=== PATIENT | female | born 1950 | race African-American/Black ===

== ENCOUNTER 2024-02-29 10:17 | Emergency (ER) | payer MEDICARE, SELFPAY ==
[2024-02-29 10:24] VITALS: BP 125/97; BMI 26.2
--- NOTE | 2024-02-29 10:27 | ED.GENMED ---
History of Present Illness
General
Chief Complaint: Abdominal Pain
Source: patient
Time Seen by Provider: 02/29/24 10:18
Travel History
Have you had any contact with someone who has COVID-19?: No
Do you have any symptoms of coronavirus? Fever > 100 degrees, chills, cough, shortness of breath, sore throat, loss of taste or smell, muscle aches, or headache?: No
History of Present Illness
History of Present Illness:
73-year-old female with past medical history of hypertension, GERD, diverticulitis/diverticulosis presenting to the emergency department for evaluation of generalized abdominal discomfort that started on Saturday, has been gradually worsening
throughout the days and yesterday and today accompanied with nausea and vomiting. Patient states that she attempted Pepto-Bismol yesterday with minimal to no relief. She states anytime she attempts to eat or drink anything pain will worsen and
then she will either vomit or have to feel like she has a bowel movement but states is not going very much. She denies any fevers, chills, rigors, urinary symptoms, chest pain, shortness of breath, melena or hematochezia or any other concerns.
Patient states she had a colonoscopy done in October or November of this year which showed diverticulosis but no other abnormal findings. Social history noncontributory. Of note, patient was recently on an antibiotic about 2 weeks ago prescribed
by her farm machine operator after she had a right eyelid infection. She denies any diarrhea.
Past History
Past History
ED Past Medical History: HTN and Other (Diverticulosis, diverticulitis)
ED Past Surgical History: Cholecystectomy, Gynecological and Orthopedic
Social History
Tobacco: Non-smoker
Alcohol: None
Drug: None
Personal:
Living: with family
Review of Systems
Review of Systems
All Other Systems: ROS reviewed and negative except as documented in HPI and ROS
Phy Exam
Physical Exam
Physical Exam:
GENERAL: Alert , in no apparent distress
EYE: clear conjunctiva b/l
HEAD: NCAT
ENT: o/p clr, mmm.
CARDIAC: Regular rate and rhythm .
LUNGS: Clear breath sounds bilaterally, no acute respiratory distress, no wheezes/rales/rhonchi
ABDOMEN: Soft, generalized tenderness, no r/g, no cvat
NEUROLOGICAL: Alert and oriented
SKIN: Warm and dry, skin intact.
MUSCULOSKELETAL: well perfused.
PSYCH: Normal and appropriate interaction.
Scores
Heart Failure Risk
Heart Failure Risk Score: Not Applicable
Heart Score for Chest Pain Patients
STEMI patient?: Not applicable
Withdrawal Assessment of Alcohol
Withdrawal Assessment Completed?: Not applicable
Course
Orders/Labs/Results
Orders:
Orders
02/29/24 10:26
Urinalysis Reflex To Culture Urgent
Ketorolac [Toradol] 30 mg IV NOW STA
Ondansetron Injectable [Zofran] 4 mg IV NOW STA
02/29/24 10:27
CT Abd/Pel (IV only)-DH only Urgent
Comment:
Reason For Exam: generalized abd pain, vomiting, hx diverticulitis
02/29/24 10:33
Complete Blood Count/With Diff Urgent
Comprehensive Metabolic Panel Urgent
Lipase Urgent
02/29/24 11:05
Potassium Chloride [KCl] 40 meq PO NOW STA
02/29/24 11:15
Case Management Consult ONCE
Case Management Consult: VN/Home Care
02/29/24 11:58
0.9% Sodium Chloride 1000 ml [Nss] 1,000 ml IV BOLUS
02/29/24 12:26
Crisis Consult Urgent
Reason for Consult: depression
Abnormal Lab Results
02/29/24
10:33
MCV 80.3 L fL
(81.0-99.0)
MCH 26.8 L pg
(27.0-31.0)
RDW 14.6 H %
(11.5-14.5)
Monocytes % 9.9 H %
(1.7-9.3)
Potassium 2.9 L mmol/L
(3.5-5.1)
Glucose 174 H mg/dl
(70-99)
02/29/24 10:33
02/29/24 10:33
Vital Signs
Initial and Last Documented VS:
Initial Vital Signs
Temp Pulse Resp BP Pulse Ox
98.0 F 94 18 125/97 98
02/29/24 10:24 02/29/24 10:24 02/29/24 10:24 02/29/24 10:24 02/29/24 10:24
Last Documented Vital Signs
Temp Pulse Resp BP Pulse Ox
98.0 F 94 18 141/91 97
02/29/24 10:24 02/29/24 10:24 02/29/24 10:24 02/29/24 11:00 02/29/24 11:15
MDM/Problems Addressed
Differential Diagnosis Includes:
Diverticulitis, diverticulosis, GERD, colitis, pancreatitis
MDM/Problems Addressed:
73-year-old female presenting to the emergency department for evaluation of generalized abdominal discomfort for 3 days, symptoms worsening yesterday and today and accompanied with nausea and vomiting. Overall patient's exam is somewhat reassuring.
She does not seem in any significant distress. She does have generalized abdominal discomfort. Will check labs and CT imaging. Treatment with Toradol and Zofran. Reassessment following
Chronic conditions affecting care: Other (diverticulosis)
*Pulse Oximetry
Patient hypoxic: no
*Critical Care Note
Total Time (30-74mins, 75-104mins- exclusive of procedures): Not Applicable
Patient Management
Discussion with other providers: Other
Escalation/DeEscalation of care consider admission/obs:
Patient seen by our case management staff who request patient all to be seen by crisis. Case management will arrange for home visits as well as protective services to come out and visit the patient. Patient has been living with her family for 15
years and her family recently moved from this area to [place] and for a long time patient was told she would need to find a living situation but has been pressed and eating and is now looking at potentially becoming homeless. Family believes that a
lot of these issues may stem from generalized depression and lack of self-care. She was also seen by our crisis team who provided her with resources for outpatient management. Patient is otherwise stable discharge home with her family. Her CT did
show evidence for mild diverticulitis. She was given a p.o. potassium supplement and will follow-up with her primary care physician.
ED Attending Note
-
Portions of this chart may have been created with voice recognition software.� Occasional wrong word or��sound alike� substitutions may have occurred due to the inherent limitations of voice recognition software.
Discharge Plan
Departure
Patient Disposition: Home (Routine Discharge)
Date of Disposition: 02/29/24
Time of Disposition: 13:40
Patient with high blood pressure during this ER visit?: Yes
Discharge Problem:
Diverticulitis
Instructions: Diverticulitis (DC)
Prescriptions:
New
amoxicillin-pot clavulanate 875-125 mg tablet
1 tab PO BID 10 Days Qty: 20 0RF
Referrals:
Duke Roper MD [Active] - (GI)
UNKNOWN - PT DOES,NOT KNOW [Family Provider] -
Interventions
Interventions:
*Risk Screen - Suicide Last Done: 02/29/24 10:24
*General Assessment Last Done: 02/29/24 10:24
*Neglect/Abuse Screening Last Done: 02/29/24 10:24
*ED COVID-19 Vaccine History Last Done: 02/29/24 10:24
Discharge Date and Time
Print Language: HUNGARIAN
[2024-02-29] MEDS: TORADOL 30 MG IV (10:36)
[2024-02-29] MEDS: ZOFRAN 4 MG IV (10:37)
[2024-02-29 10:44] LABS: % Basophils 0.8 % (0-2); % Eosinophils 2.4 % (0-6); % Immature Granulocytes 0.2 % (0-0.5); % Lymphocytes 37.5 % (20.5-51.1); % Monocytes 9.9 % (1.7-9.3); % Neutrophils 49.2 % (42.2-75.2); Absolute Basophils 0.1 10^3/uL (0-0.2); Absolute Eosinophils 0.2 10^3/uL (0-0.7); Absolute Lymphocytes 2.4 10^3/uL (1.2-3.4); Absolute Monocytes 0.6 10^3/uL (0.1-0.6); Absolute Neutrophils 3.1 10^3/uL (1.4-6.5); Hematocrit 37.1 % (37.0-47.0); Hemoglobin 12.4 g/dL (12.0-16.0); Mean Corp Hgb Conc. 33.4 g/dL (33.0-37.0); Mean Corpuscular Hgb 26.8 pg (27.0-31.0); Mean Corpuscular Volume 80.3 fL (81.0-99.0); Mean Platelet Volume 9.4 fL (7.4-10.4); Nucleated Red Blood Cells % 0 %; Platelet Count 306 10^3/uL (130-400); Red Blood Cell Count 4.62 10^6/uL (4.20-5.40); Red Cell Dist. Width 14.6 % (11.5-14.5); White Blood Cell Count 6.3 10^3/uL (4.8-10.8)
[2024-02-29 11:00] VITALS: BP 141/91
[2024-02-29 11:01] LABS: ALT (SGPT) 15 U/L (0-35); AST (SGOT) 22 U/L (14-36); Alkaline Phosphatase 89 U/L (38-126); Blood Urea Nitrogen 11 mg/dl (7-17); Calcium 9.2 mg/dl (8.4-10.2); Carbon Dioxide 28 mmol/L (22-30); Chloride 103 mmol/L (98-107); Estimated Creatinine Clearance 84 ml/min; Glucose 174 mg/dl (70-99); Lipase 34 U/L (23-300); Potassium 2.9 mmol/L (3.5-5.1); Sodium 137 mmol/L (135-145); Total Bilirubin 0.9 mg/dl (0.2-1.3); Total Protein 7.3 g/dl (6.3-8.2); eGFR > 60.00
[2024-02-29] MEDS: KCL 40 MEQ PO (11:27)
[2024-02-29] MEDS: NSS 1000 IV (12:01)
[2024-02-29 12:02] VITALS: BP 129/92
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
[2024-02-29 14:00] VITALS: BP 135/91
== END 2024-02-29 15:33 | disposition home or self-care (01) ==
LOC: EMR 10:17
PROVIDERS: Physician Assistant Medical; EMERGENCY PHYSICIAN Emergency Medicine
DX: K57.92 Diverticulitis of intestine, part unspecified, without perforation or abscess without bleeding (principal); R11.2 Nausea with vomiting, unspecified; R10.9 Unspecified abdominal pain; I10 Essential (primary) hypertension; K21.9 Gastro-esophageal reflux disease without esophagitis; Z90.49 Acquired absence of other specified parts of digestive tract; Z88.6 Allergy status to analgesic agent; Z88.5 Allergy status to narcotic agent; Z88.8 Allergy status to other drugs, medicaments and biological substances
CPT/HCPCS: 99285; 96375; 96361; 96374; 74177; 80053; 83690; 85025; Q9967